=== PATIENT | male | born 2000 | race Caucasian/White ===

== ENCOUNTER 2020-03-16 13:33 | Outpatient (REF) | payer OTHER, SELFPAY | END 2020-03-16 13:34 | disposition home or self-care (01) | LOC: HO.LNP 13:33 | PROVIDERS: Visit Provider Hospitalist | DX: Z20.828 Contact with and (suspected) exposure to other viral communicable diseases (principal) | CPT/HCPCS: 87635 ==

== ENCOUNTER 2022-10-16 08:08 | Outpatient (REF) | payer BC, SELFPAY ==
--- NOTE | 2022-10-16 08:15 | EEG_ITS ---
FINDINGS: Waking background activity consists of a 10 to 11 hertz posterior alpha frequency intermixed anteriorly with low voltage fast frequencies and muscle artifacts. Photic stimulation is without activation. Hyperventilation produces no change. No sleep stages identified. No focal, lateralizing, or paroxysmal discharges are seen. IMPRESSION: This waking EEG is within normal limits. MD ANTHONY Reinoso/ROBERT / [id number]
== END 2022-10-16 08:09 | disposition home or self-care (01) ==
LOC: HO.NEURO 08:08
PROVIDERS: Visit Provider Internal Medicine
DX: R56.9 Unspecified convulsions (principal)
CPT/HCPCS: 95816

== ENCOUNTER 2022-12-27 12:58 | Outpatient (AMB) | payer BC, SELFPAY ==
[2022-12-27 13:02] VITALS: BP 116/78; PULSE 96; O2SAT 100; BMI 15.4
--- NOTE | 2022-12-27 13:02 | MHC.PC.OV ---
Vital Signs 12/27/22 13:02 Height 6 ft 2 in Weight 120 lb BMI 15.4 BP 116/78 Blood Pressure Location Lt brachial Position Sitting Pulse 96 Pulse Source Pulse Oximeter Pulse Oximetry (%) 100 Oxygen Delivery Method Room Air Intake Visit Reasons: depression Allergies bupropion [From Wellbutrin] Adverse Reaction (Intermediate, Verified 12/27/22 13:02) Seizure Medication List - Last Reconciled 12/27/22 by Rocky Early MD paroxetine HCl 10 mg PO DAILY Tobacco use date assessed: 12/27/22 Dental Screening Dental Screen Date: 12/27/22 Did you have a dental visit in the last 12 months?: Yes Did you have a dental problem in the last 6 months where you did not have access to dental care?: No Was dental information given to patient?: Patient has dentist HPI depression HPI Details 22-year-old male with generalized anxiety disorder seizures recurrent depression coming in for follow-up. September last seen ordered for blood work in EEG which was negative. [facility] Medical History (Updated 12/27/22 @ 13:20 by Rocky Early MD) Orbital fracture Right arm fracture Family History (Updated 09/21/22 @ 14:05 by Rocky Early MD) Maternal Aunt Myocardial infarct Maternal Grandfather Myocardial infarct Social History (Updated 09/21/22 @ 14:06 by Rocky Early MD) Housing: House Alcohol intake: current Patient Tobacco Use Status: Never used Tobacco e-Cigarette/Vaping Use: Never Used Second Hand Smoke Exposure: No service: No Current occupational status: employed Current occupation: [employer] Current occupational exposures/hazards: No Cognitive needs: No Hearing needs: No Vision needs: Yes Questionnaire PHQ-9 Over the last 2 weeks, how often have you been bothered by any of the following problems? 1. Little interest or pleasure in doing things: several days 2. Feeling down, depressed, or hopeless: several days 3. Trouble falling or staying asleep, or sleeping too much: several days 4. Feeling tired or having little energy: several days 5. Poor appetite or overeating: several days 6. Feeling bad about yourself - or that you are a failure or have let yourself or your family down: several days 7. Trouble concentrating on things, such as reading the newspaper or watching television: several days 8. Moving or speaking so slowly that other people could have noticed. Or the opposite - being so fidgety or restless that you have been moving around a lot more than usual: not at all 9. Thoughts that you would be better off or of hurting yourself in some way: not at all Total score: 7 Source: Developed by Drs. Chalo Kilgore, Nalini Lemus, José Lees and colleagues, with an educational roger from [employer]. Thrive Questionnaire Date Thrive assessed: 09/21/22 AUDIT C Alcohol Use Questionnaire (AUDIT-C) 1. How often do you have a drink containing alcohol?: Monthly or less Total Score: 1 LUIS-7 AMB Questionnaire LUIS-7 Date LUIS - 7 assessed: 12/27/22 Feeling nervous, anxious, or on edge: 3 = Nearly every day Not being able to stop or control worryin = Several days Worrying too much about different things: 2 = More than half the days Trouble relaxin = More than half the days Being so restless that it is hard to sit still: 0 = Not at all Becoming easily annoyed or irritable: 0 = Not at all Feeling afraid as if something awful might happen: 1 = Several days Total LUIS-7 score (0-4 normal; 5-9 mild; 10-14 moderate; 15-21 severe): 9 Source: Developed by Drs. Chalo Kilgore, Nalini Lemus, José Lees and colleagues, with an educational roger from [employer]. Physical exam (Primary Care) Vital Signs: Last Vital Signs Pulse 96 12/27/22 13:02 BP 116/78 12/27/22 13:02 Pulse Ox 100 12/27/22 13:02 Oxygen Delivery Method Room Air 12/27/22 13:02 BMI result Body Mass Index 15.4 Tobacco/Smoking Status: Tobacco use Status Tobacco use date assessed 12/27/22 12/27/22 13:07 Patient Tobacco Use Status Never used Tobacco 12/27/22 13:07 e-Cigarette/Vaping Use Never Used 12/27/22 13:07 PHQ-9: PHQ-9 Score PHQ-9: Total score 7 12/27/22 13:07 Thrive Assessment: Date of Thrive Assessment Date Thrive assessed 09/21/22 12/27/22 13:07 Const General: alert; No acute distress Eyes Conjunctivae: conjunctivae normal Resp Auscultation: clear to auscultation bilaterally Cardio Rate: regular rate Rhythm: regular rhythm GI Inspection: Yes normal to inspection Extrem General: Yes normal to inspection and No edema Assessment and Plan Assessment & Plan (1) Recurrent depression: Comment: [facility] Code(s): F33.9 - Major depressive disorder, recurrent, unspecified Plan: did not feel counselling helping. Start on Paxil (2) Seizures: Comment: resolved , wellbutrin taken off Code(s): R56.9 - Unspecified convulsions Plan: resolved (3) Generalized anxiety disorder: Comment: [facility] Code(s): F41.1 - Generalized anxiety disorder Plan: did not feel counselling effective (4) Insomnia: Code(s): G47.00 - Insomnia, unspecified Plan: paxil sent will help with this problem Medications: New paroxetine HCl 10 mg PO DAILY 30 tabs 2RF F33.9 - Major depressive disorder, recurrent, unspecified Coding Level of Care Code Est Pt Level 4 (07980) Diagnoses Recurrent depression F33.9 Seizures R56.9 Generalized anxiety disorder F41.1 Insomnia G47.00
== END 2022-12-27 13:25 | disposition home or self-care (01) ==
PROVIDERS: PCP Internal Medicine; Visit Provider Internal Medicine
DX: F33.9 Major depressive disorder, recurrent, unspecified (principal); R56.9 Unspecified convulsions; F41.1 Generalized anxiety disorder; G47.00 Insomnia, unspecified
CPT/HCPCS: 99214

== ENCOUNTER 2024-12-01 10:17 | Outpatient (AMB) | payer BC, SELFPAY ==
--- NOTE | 2024-12-01 10:20 | A.OFFPC_ITS ---
Vital Signs 12/01/24 10:21 Height 6 ft 2 in Weight 126 lb 6 oz BMI 16.2 BP 116/82 Blood Pressure Location Lt brachial Position Sitting Pulse 103 H Pulse Source Pulse Oximeter Pulse Oximetry (%) 96 Oxygen Delivery Method Room Air Intake Visit Reasons: Crisis Concern Executive Advisor Required: No Accompanied by: Self / Same As Patient Allergies bupropion (From Wellbutrin) Adverse Reaction (Intermediate, Verified 12/01/24 10:22) Seizure Medication List - Last Reconciled 12/01/24 by Rocky Early MD ascorbic acid (vitamin C) mg PO magnesium 200 mg PO DAILY mecobalamin (vitamin B12) mcg PO pyridoxine (vitamin B6) (Vitamin B-6) 50 mg PO DAILY thiamine HCl (vitamin B1) 50 mg PO DAILY zinc gluconate 50 mg PO DAILY Tobacco use date assessed: 12/01/24 Dental Screening Dental Screen Date: 12/01/24 Did you have a dental visit in the last 12 months?: Yes Did you have a dental problem in the last 6 months where you did not have access to dental care?: No Was dental information given to patient?: Patient has dentist HPI Crisis Concern HPI Details drinking alcohol6-8 tall drinks a day, problem with depression and anxiety,. Discussed with the nurse navigator for further management of the alcohol problem [facility] Medical History (Updated 12/27/22 @ 13:20 by Rocky Early MD) Orbital fracture Right arm fracture Family History (Updated 12/01/24 @ 10:54 by Rocky Early MD) Maternal Aunt Myocardial infarct Maternal Grandfather Myocardial infarct Lung cancer Maternal Uncle Myocardial infarct Paternal Grandfather Lung cancer Social History (Updated 12/01/24 @ 10:54 by Rocky Early MD) Housing: House Alcohol intake: current Comment: 6-8 tall beers a day Patient Tobacco Use Status: Never used Tobacco e-Cigarette/Vaping Use: Never Used Second Hand Smoke Exposure: No service: No Current occupational status: employed Current occupation: [employer] Current occupational exposures/hazards: No Cognitive needs: No Hearing needs: No Vision needs: Yes Questionnaire PHQ-9 Over the last 2 weeks, how often have you been bothered by any of the following problems? 1. Little interest or pleasure in doing things: nearly every day 2. Feeling down, depressed, or hopeless: nearly every day 3. Trouble falling or staying asleep, or sleeping too much: nearly every day 4. Feeling tired or having little energy: nearly every day 5. Poor appetite or overeating: nearly every day 6. Feeling bad about yourself - or that you are a failure or have let yourself or your family down: nearly every day 7. Trouble concentrating on things, such as reading the newspaper or watching television: nearly every day 8. Moving or speaking so slowly that other people could have noticed. Or the opposite - being so fidgety or restless that you have been moving around a lot more than usual: nearly every day 9. Thoughts that you would be better off or of hurting yourself in some way: nearly every day Total score: 27 Source: Developed by Drs. Chalo Kilgore, Nalini Lemus, José Lees and colleagues, with an educational roger from [employer]. Thrive Questionnaire Date Thrive assessed: 12/01/24 I am a: Patient What is your living situation today?: I have a steady place to live Within the past 12 months, did the food you bought not last and you didn't have the money to get more?: Sometimes True Within the past 12 months, did you worry whether your food would run out before you got money to buy more?: Sometimes True Do you have trouble paying for medicines?: Yes Do you have trouble getting transportation to medical appointments?: No Do you have trouble paying your heating and electricity bill?: Yes Do you have trouble taking care of your child, family member or friend?: No Do you have trouble with day-to-day activities such as bathing, preparing meals, shopping, managing finances, etc.?: No Are you currently unemployed and looking for a job?: No Are you interested in more education?: Yes Please select the resources that you would like help with: Housing/[facility], Food, Paying for medicine, Utilities, Daily support, Job search/training and Education Currently or been in a relationship where the following occur: No concerns reported THRIVE Score: 3 AUDIT C Alcohol Use Questionnaire (AUDIT-C) 1. How often do you have a drink containing alcohol?: 4 or more times a week 2. How many drinks containing alcohol do you have on a typical day when you are drinking?: 10 or more 3. How often do you have six or more drinks on one occasion?: Daily or almost daily Total Score: 12 LUIS-7 AMB Questionnaire LUIS-7 Date LUIS - 7 assessed: 12/01/24 Feeling nervous, anxious, or on edge: 3 = Nearly every day Not being able to stop or control worryin = Nearly every day Worrying too much about different things: 3 = Nearly every day Trouble relaxin = Nearly every day Being so restless that it is hard to sit still: 3 = Nearly every day Becoming easily annoyed or irritable: 3 = Nearly every day Feeling afraid as if something awful might happen: 3 = Nearly every day Total LUIS-7 score (0-4 normal; 5-9 mild; 10-14 moderate; 15-21 severe): 21 Source: Developed by Drs. Chalo Kilgore, Nalini Lemus, José Lees and colleagues, with an educational roger from [employer]. Physical exam (Primary Care) Vital Signs: Last Vital Signs Pulse 103 H 12/01/24 10:21 BP 116/82 12/01/24 10:21 Pulse Ox 96 12/01/24 10:21 Oxygen Delivery Method Room Air 12/01/24 10:21 BMI result Body Mass Index 16.2 Tobacco/Smoking Status: Tobacco use Status Tobacco use date assessed 12/01/24 12/01/24 10:27 Patient Tobacco Use Status Never used Tobacco 12/01/24 10:54 e-Cigarette/Vaping Use Never Used 12/01/24 10:54 PHQ-9: PHQ-9 Score PHQ-9: Total score 27 12/01/24 11:04 Thrive Assessment: Date of Thrive Assessment Date Thrive assessed 12/01/24 12/01/24 10:27 Currently or been in a relationship where the following occur: No concerns reported Const General: alert; No acute distress Eyes Conjunctivae: conjunctivae normal Resp Auscultation: clear to auscultation bilaterally Cardio Rate: regular rate Rhythm: regular rhythm GI Inspection: Yes normal to inspection Extrem General: Yes normal to inspection and No edema Coding Level of Care Code Est Pt Level 4 (13965) Diagnoses Recurrent depression F33.9 Alcohol abuse F10.10 Assessment & Plan Assessment & Plan (1) Recurrent depression: Comment: [place], private Code(s): F33.9 - Major depressive disorder, recurrent, unspecified Category: Medical (2) Alcohol abuse: Code(s): F10.10 - Alcohol abuse, uncomplicated Category: Social Hx Plan History of Present Illness The patient is a 24-year-old male presenting with concerns related to alcohol use and its impact on his mental health conditions, including anxiety and depression. The patient has a history of generalized anxiety disorder and major depressive disorder, which have been ongoing for several years. He reports self-medicating with alcohol to manage these symptoms, consuming six to eight tall alcoholic beverages daily for the past few years. The patient acknowledges the desire to stop drinking but experiences withdrawal symptoms when attempting to cease alcohol consumption. The patient has a history of seizures, which limits the use of certain medications such as bupropion. He previously used paroxetine for depression but discontinued it due to adverse sexual side effects. The patient denies any new diagnoses or surgeries since his last visit. He reports no allergies to medications, except for issues with bupropion, and is not currently taking any prescribed medications. The patient takes [id number] vitamins, including vitamin C, B12, B6, and magnesium, to address potential deficiencies due to alcohol consumption. Family history is significant for heart disease on the maternal side and neurological issues on the paternal side. Both grandfathers had lung cancer, and the patient denies any personal history of smoking. Health Maintenance Social History - Substance Use: Reports consuming six to eight tall alcoholic beverages daily for the past few years. - Family History: Maternal side with heart disease; paternal side with neurological issues. - Smoking: Denies any personal history of smoking. Review of Systems - Psychiatric: Reports anxiety and depression. Denies new psychiatric diagnoses. - Neurological: Reports history of seizures. Denies new neurological symptoms. - Gastrointestinal: Reports diarrhea, possibly related to alcohol consumption. Physical Exam Results Plan The patient will be referred to outpatient psychiatry for management of generalized anxiety disorder and major depressive disorder, with a focus on finding suitable medication that does not exacerbate his seizure disorder or cause intolerable side effects. A referral to a [facility] will be made to address the patient's alcohol use disorder, with consideration for both inpatient and outpatient treatment options. The patient will be provided with information on recovery resources and support groups to aid in cessation of alcohol use. Vitamin B1 supplementation will be initiated to prevent deficiencies associated with alcohol consumption. Patient was informed and verbally consented to the use of an ambient scribe for clinic note documentation during this visit. Discussion Notes I discussed with the patient the importance of addressing his alcohol use disorder and its impact on his mental health conditions. We reviewed the potential side effects of medications for anxiety and depression, particularly in the context of his seizure disorder. I emphasized the need for a comprehensive approach, including referrals to psychiatry and a [facility], to provide the necessary support and resources for recovery. Patient Instructions - Follow up with the psychiatry referral for medication management. - Attend the [facility] for alcohol use disorder treatment. - Take vitamin B1 as prescribed to prevent deficiencies. - Engage in support groups and recovery resources provided. Orders: Referrals Addiction Medicine Referral F10.10 - Alcohol abuse, uncomplicated Psychiatry Outpatient Consultation Service F33.9 - Major depressive disorder, recurrent, unspecified Medications: New thiamine HCl (vitamin B1) 50 mg PO DAILY 30 tabs 3RF F33.9 - Major depressive disorder, recurrent, unspecified
[2024-12-01 10:21] VITALS: BP 116/82; PULSE 103; O2SAT 96; BMI 16.2
--- OUTSIDE RECORDS SUMMARY | 2024-12-01 11:24 | XMS_ITS | Clinical Summary ---
Author Organization [facility] Address [address] [place] [address] Phone Care Team Providers Care Food Checker Name Role Phone Unavailable Primary Care Provider Unavailabl e Allergies No known active allergies Medications No known medications Active Problems Problem Noted Date Diagnosed Date Low weight, pediatric, BMI less than 5th percent ile for age 0712/24/2017 Immunizations Immunization Administration Dates Next Due DTaP 03/14/2005, 2,2000,07/11,2000 HPV Vaccine 9 Valent 11/14/2015,06/09/2015,03/31 Hep A, ped/adol 01/13/2019,12/24/2017 Hep B, ped/adol 2000,2000,2000 Hib (PRP-T) 06/16/2001, 1,2000,05/10 IPV 03/14/2005, 1,2000,05/10 Influenza, injectable, quadrivalent 02/2011,05/25/2010,06/17/2008,05/14,05/04/2003,04/03/2003 Influenza, injectable, quadr ivalent, preservative free 05/10/2016,04/09/2013 Influenza, intranasal, quadrivalent 03/31/2015,1 06/17/2006 MMR 04/19/2004,03/27/2001 Meningococcal B Bexsero 01/13/2019 Meningococcal Conj (Menactra) MCV4P 05/10/2016,0 07/12/2011 Pneumococcal Conjugate 03/27/2001,2000,2000,05/10 Tdap 07/12/2011 Varicella 04/28/2009,03/27/2001 Family History Medical History Relation Name Comments No Known Problems Brother Relation Name Status Comments Brother Alive Father Alzheimer age: 62 Maternal Grandfather georgiana a..tobacco Maternal Grandmother fel off the roof of her house 2006... Mother Alive healthy age: 52 Other Alive Siblings: healt hy Paternal Grandfather cancer, lung Paternal Grandmother assiste d living in [place] and some heart trouble. Social History Tobacco Use Types Packs/Day Years Used Date Smoking Tobacco: Never Smokeless Tobacco: Never Alcohol Use Standard Drinks/Week Comments Never 0 (1 standard drink = 0.6 oz pur e alcohol) Sex and Gender Information Value Date Recorded Sex Assigned at Not on file Legal Sex Male 6:23 PM EDT Gender Identity Not on file Sexual Orientation Not on file Last Filed Vital Signs Vital Sign Reading Time Taken Comments Blood Pressure 112/66 01/13/2019 10:10 AM EDT Pulse - - Temperature 38.3 C (101 F) 05/05/2018 6:35 PM EST Respiratory Rate - - Oxygen Saturation - - Inhaled Oxygen Concentration - - Weight 55.3 kg (122 lb) 01/13/2019 10:10 AM EDT Height 181 cm (5' 11.25 ) 01/13/2019 10:10 AM ED T Body Mass Index 16.9 01/13/2019 10:10 AM EDT Plan of Treatment Health Maintenance Due Date Last Done Comments Men B Vaccine (2 of 2 - Bexs ero SCDM 2-dose series) 07/16/2019 01/13/2019 DTaP,Tdap,and Td Vaccines (7 - Td or Tdap) 07/12/2021 07/12/2011, 03/14/2005, 06/16/2001, Additional history exists Influenza Vaccines (#1) 2024 05/10/20 16, 03/31/2015, 04/09/2013, Additional history exists COVID-19 Vaccine (3 - 2023-2 5 season) 2024 11/01/2020, 10/11/2020 Hepatitis B Vaccines Completed 2000, 2000, 2000 Pneumococcal Vaccine Completed 03/27/2001, 2000, 2000, Additional history exists HIB Vaccines Completed 06/16/2001, 09/08, 2000, Additional history exists MMR Vaccines Completed 04/19/2004, 03/27/2001 IPV Vaccines Completed 03/14/2005, 12/08, 2000, Additional history exists Varicella Vaccines Completed 04/28/2009, 03/27/2001 HPV Vaccines Completed 11/14/2015, 05/12, 03/31/2015 Meningococcal Vaccine Completed 05/10/2016, 012 Hepatitis A Vaccines Completed 01/13/2019, 12/25/19 18 Insurance AETNA AETNA
== END 2024-12-01 11:16 | disposition home or self-care (01) ==
LOC: HO.HMCH 10:18
PROVIDERS: PCP Internal Medicine; Visit Provider Internal Medicine
DX: F33.9 Major depressive disorder, recurrent, unspecified (principal); F10.10 Alcohol abuse, uncomplicated

== ENCOUNTER → 2024-12-01 10:17 | Outpatient (BNVA) | payer BC, SELFPAY | PROVIDERS: PCP Internal Medicine; Visit Provider Internal Medicine | DX: Z13.89 Encounter for screening for other disorder (principal) ==

== ENCOUNTER 2025-04-05 10:33 | Outpatient (AMB) | payer BC, SELFPAY ==
[2025-04-05 10:36] VITALS: BP 128/82; PULSE 113; TEMP 36.2; O2SAT 99; BMI 16.0
--- NOTE | 2025-04-05 10:36 | A.OFFPC_ITS ---
Vital Signs 04/05/25 10:36 Height 6 ft 2 in Weight 124 lb 6 oz BMI 16.0 BP 128/82 Blood Pressure Location Lt brachial Position Sitting Pulse 113 H Pulse Source Pulse Oximeter Temp 97.1 F Temp Source Temporal Artery Scan Pulse Oximetry (%) 99 Oxygen Delivery Method Room Air Intake Visit Reasons: Depression Allergies bupropion (From Wellbutrin) Adverse Reaction (Intermediate, Verified 04/05/25 10:38) Seizure Medication List - Last Reconciled 04/05/25 by Rocky Early MD ascorbic acid (vitamin C) mg PO magnesium 200 mg PO DAILY mecobalamin (vitamin B12) mcg PO mirtazapine 15 mg PO BEDTIME pyridoxine (vitamin B6) (Vitamin B-6) 50 mg PO DAILY sertraline 25 mg PO DAILY thiamine HCl (vitamin B1) 50 mg PO DAILY zinc gluconate 50 mg PO DAILY Tobacco use date assessed: 04/05/25 Dental Screening Dental Screen Date: 04/05/25 Did you have a dental visit in the last 12 months?: Yes Did you have a dental problem in the last 6 months where you did not have access to dental care?: No Was dental information given to patient?: Patient has dentist [facility] Medical History Orbital fracture Right arm fracture Family History Maternal Aunt Myocardial infarct Maternal Grandfather Myocardial infarct Lung cancer Maternal Uncle Myocardial infarct Paternal Grandfather Lung cancer Social History Housing: House Alcohol intake: current Comment: 6-8 tall beers a day Patient Tobacco Use Status: Never used Tobacco e-Cigarette/Vaping Use: Never Used Second Hand Smoke Exposure: No service: No Current occupational status: employed Current occupation: [employer] Current occupational exposures/hazards: No Cognitive needs: No Hearing needs: No Vision needs: Yes Questionnaire PHQ-9 Over the last 2 weeks, how often have you been bothered by any of the following problems? 1. Little interest or pleasure in doing things: nearly every day 2. Feeling down, depressed, or hopeless: nearly every day 3. Trouble falling or staying asleep, or sleeping too much: nearly every day 4. Feeling tired or having little energy: nearly every day 5. Poor appetite or overeating: nearly every day 6. Feeling bad about yourself - or that you are a failure or have let yourself or your family down: nearly every day 7. Trouble concentrating on things, such as reading the newspaper or watching television: nearly every day 8. Moving or speaking so slowly that other people could have noticed. Or the opposite - being so fidgety or restless that you have been moving around a lot more than usual: nearly every day 9. Thoughts that you would be better off or of hurting yourself in some way: nearly every day Total score: 27 Source: Developed by Drs. Chalo Kilgore, Nalini Lemus, José Lees and colleagues, with an educational roger from [employer]. Thrive Questionnaire Date Thrive assessed: 12/01/24 I am a: Patient What is your living situation today?: I have a steady place to live Within the past 12 months, did the food you bought not last and you didn't have the money to get more?: Sometimes True Within the past 12 months, did you worry whether your food would run out before you got money to buy more?: Sometimes True Do you have trouble paying for medicines?: Yes Do you have trouble getting transportation to medical appointments?: No Do you have trouble paying your heating and electricity bill?: Yes Do you have trouble taking care of your child, family member or friend?: No Do you have trouble with day-to-day activities such as bathing, preparing meals, shopping, managing finances, etc.?: No Are you currently unemployed and looking for a job?: No Are you interested in more education?: Yes Currently or been in a relationship where the following occur: No concerns reported THRIVE Score: 3 AUDIT C Alcohol Use Questionnaire (AUDIT-C) 1. How often do you have a drink containing alcohol?: 2-3 times a week 2. How many drinks containing alcohol do you have on a typical day when you are drinking?: 5 or 6 3. How often do you have six or more drinks on one occasion?: Less than monthly Total Score: 6 LUIS-7 AMB Questionnaire LUIS-7 Date LUIS - 7 assessed: 12/01/24 Feeling nervous, anxious, or on edge: 3 = Nearly every day Not being able to stop or control worryin = Nearly every day Worrying too much about different things: 3 = Nearly every day Trouble relaxin = Nearly every day Being so restless that it is hard to sit still: 3 = Nearly every day Becoming easily annoyed or irritable: 3 = Nearly every day Feeling afraid as if something awful might happen: 3 = Nearly every day Total LUIS-7 score (0-4 normal; 5-9 mild; 10-14 moderate; 15-21 severe): 21 Source: Developed by Drs. Chalo Kilgore, Nalini Lemus, José Lees and colleagues, with an educational roger from [employer]. Physical exam (Primary Care) Vital Signs: Last Vital Signs Temp 97.1 F 04/05/25 10:36 Pulse 113 H 04/05/25 10:36 BP 128/82 04/05/25 10:36 Pulse Ox 99 04/05/25 10:36 Oxygen Delivery Method Room Air 04/05/25 10:36 BMI result Body Mass Index 16.0 Tobacco/Smoking Status: Tobacco use Status Tobacco use date assessed 04/05/25 04/05/25 10:40 Patient Tobacco Use Status Never used Tobacco 04/05/25 10:40 e-Cigarette/Vaping Use Never Used 04/05/25 10:40 PHQ-9: PHQ-9 Score PHQ-9: Total score 27 04/05/25 11:12 Thrive Assessment: Date of Thrive Assessment Date Thrive assessed 12/01/24 04/05/25 10:40 Currently or been in a relationship where the following occur: No concerns reported Const General: alert; No acute distress Eyes Conjunctivae: conjunctivae normal Resp Auscultation: clear to auscultation bilaterally Cardio Rate: regular rate Rhythm: regular rhythm GI Inspection: Yes normal to inspection Extrem General: Yes normal to inspection and No edema Coding Level of Care Code Est Pt Level 4 (99052) Diagnoses Generalized anxiety disorder F41.1 Recurrent depression F33.9 Underweight R63.6 Assessment & Plan Assessment & Plan (1) Generalized anxiety disorder: Comment: [place] [facility] Code(s): F41.1 - Generalized anxiety disorder Category: Medical (2) Recurrent depression: Comment: [place] [facility] Code(s): F33.9 - Major depressive disorder, recurrent, unspecified Category: Medical (3) Underweight: Code(s): R63.6 - Underweight Category: Medical Plan History of Present Illness The patient is a 25-year-old underweight male presenting for a follow-up visit for management of generalized anxiety disorder and depression. He is currently taking mirtazapine, which he finds effective for sleep but not for his anxiety symptoms, which he identifies as his main problem. He has a history of resolved seizures, which precludes the use of Wellbutrin. Past medication trials include paroxetine, which he did not find helpful. He also has a history of alcohol abuse. The patient also expressed concern about his poor appetite and inquired about cyproheptadine, noting his brother had success with it for weight gain. Health Maintenance - Influenza vaccination: The patient declined receiving a flu shot during the visit but stated he will likely get one at [facility]. Social History - Substance Use: The patient has a history of alcohol abuse. - Nutritional Intake: The patient reports being underweight with a poor appetite. Review of Systems - Constitutional: Reports being underweight with a poor appetite. - Psychiatric: Reports symptoms of generalized anxiety disorder and depression. - Neurological: Reports a history of seizures that have resolved. - Sleep: Reports requiring medication to help with sleep. Physical Exam Results Plan Patient was informed and verbally consented to the use of an ambient scribe for clinic note documentation during this visit. 1. Generalized Anxiety Disorder And Depression The patient reports his current medication, mirtazapine, helps with sleep but is not effective for his anxiety. Given his history of seizures, Wellbutrin is contraindicated. Sertraline will be initiated at a low starter dose to manage anxiety and depression, with the understanding that the dose can be increased after one month if needed. The prescription will be sent to the [facility] on [facility]. 2. Insomnia The patient finds mirtazapine effective for sleep. A 90-day refill of mirtazapine will be provided. 3. Poor Appetite And Underweight The patient is concerned about his poor appetite. He requested cyproheptadine, but after review, it was determined that this medication carries a risk of inducing seizures and is therefore not a safe option given his medical history. The patient was informed that sertraline, an SSRI, can increase appetite and may help with this issue. 4. Follow-Up Care The patient is scheduled for a follow-up appointment in three months. He was advised to call sooner if he wishes to discuss increasing the sertraline dosage. Discussion Notes I discussed the patient's ongoing anxiety and his report that mirtazapine is not effective for this symptom. We decided to start a low dose of sertraline, an SSRI, after confirming it carries a lower risk of seizures compared to Wellbutrin, which is contraindicated for him. I advised him that this is a starter dose and we can increase it after a month. The patient also inquired about cyproheptadine for appetite stimulation. I reviewed the medication and found that it has a warning for seizure induction. I strongly advised against its use due to his history of seizures, and we mutually agreed not to proceed with this prescription. I explained that sertraline may also help improve his appetite. I refilled his mirtazapine for 90 days for sleep. We planned for a follow-up in three months, with instructions to contact me sooner to adjust the sertraline dose if needed. Patient Instructions - A 90-day refill for mirtazapine has been sent to your pharmacy; continue taking it at night to help with sleep. - Begin taking the new prescription, sertraline, for anxiety and depression. - This is a starting dose; you may need a higher dose later for it to be fully effective. - Do not take cyproheptadine (Periactin) for appetite, as we discussed it is not safe for you due to its risk of causing seizures. - The new medication, sertraline, may help increase your appetite. - It is recommended that you get a flu shot, which you can do at your pharmacy. - Please follow up in our office in 3 months, or call us in one month if you feel you need a higher dose of sertraline. Medications: New mirtazapine 15 mg PO BEDTIME 90 tabs 1RF sertraline 25 mg PO DAILY 30 tabs 3RF F41.1 - Generalized anxiety disorder
--- OUTSIDE RECORDS SUMMARY | 2025-04-05 12:58 | XMS_ITS | Encounter Summary ---
Author Organization [facility] Address [address] [place] [phone] Phone Care Team Providers Care Conductor And Engineer Name Role Phone Chalo Brito MD Primary Care Provider [phone] Encounter Details Date Type Department Care Team (Late st Contact Info) Description 10/27/2017 Conversion Encounter [facility] [address] [place] [address] Chalo Brito MD [address] [place] [address] Social History Tobacco Use Types Packs/Day Years Used Date Smoking Tobacco: Never Assessed Sex and Gender Information Value Date Recorded Sex Assigned at Not on file Legal Sex Male 6:23 PM EDT Gender Identity Not on file Sexual Orientation Not on file documented as of this encounter Plan of Treatment Not on file documented as of this encounter Visit Diagnoses Not on filedocumented in this encounter Care Teams Conductor And Engineer Relationship Specialty Start Date End Date Chalo Brito MD [address] [place] [address] PCP - General 10/16/17 03/10/24 documented as of this encounter
--- OUTSIDE RECORDS SUMMARY | 2025-04-05 12:58 | XMS_ITS | Clinical Summary ---
Author Organization [facility] Address [address] [place] [address] Phone Care Team Providers Care Dough Raiser Name Role Phone Unavailable Primary Care Provider [...] lung Paternal Grandmother assiste d living in [place] and some heart trouble. Social History Tobacco [...] 06/16/2001, Additional history exists Influenza Vaccines (#1) 2025 05/10/20 16, 03/31/2015, 04/09/2013, Additional history exists COVID-19 Vaccine (3 - 2024-2 6 season) 2025 11/01/2020, 10/11/2020 Hepatitis B Vaccines Completed 2000, [...]
== END 2025-04-05 11:21 | disposition home or self-care (01) ==
LOC: HO.HMCH 10:34
PROVIDERS: PCP Internal Medicine; Visit Provider Internal Medicine
DX: F41.1 Generalized anxiety disorder (principal); F33.9 Major depressive disorder, recurrent, unspecified; R63.6 Underweight